=== PATIENT | female | born 1935 | race African-American/Black ===

== ENCOUNTER 2017-05-11 09:36 | Inpatient (IN) | payer OTHER ==
[~2017-05-11] VITALS: Ht 149.9 cm; Wt 53.5 kg
[~2017-05-11 09:36] MED LIST: BYSTOLIC 5MG5 MG PO; CYMBALTA 20 MG20 MG PO; EXELON PAT; METFORMIN HCL500 MG PO; ONGLYZA5 MG PO; SINGULAIR10 MG PO; ZOFRAN ODT8 MG PO
--- NOTE | 2017-05-11 10:24 | CT SCAN REPORT ---
EXAMINATION: CT HEAD WITHOUT CONTRAST CLINICAL INFORMATION: Aphasia. CVA. COMPARISON: Head CT 07/01/2013. TECHNIQUE: Contiguous axial imaging was performed from the skull base to vertex without intravenous administration of contrast. DLP: 1242 mGy-cm FINDINGS: There is no evidence of acute intracranial hemorrhage or territorial infarction. No abnormal mass effect or midline shift is seen. Recinos to white matter differentiation is preserved. No extra-axial fluid collections are identified. The ventricles and sulcal spaces are mildly prominent, likely representing a degree of cerebral volume loss. Diffuse periventricular and subcortical white matter hypoattenuation is redemonstrated, and likely represents sequela of ischemic microangiopathy. Basal ganglia calcification. The osseous structures and soft tissues are unremarkable. Mucosal thickening within right ethmoid air cells. Mastoid air cells are aerated. IMPRESSION: No acute intracranial pathology demonstrated. If clinically warranted, consider further evaluation with brain MRI to increase sensitivity for small lacunar infarct. Changes of chronic ischemic microangiopathy and suspect a degree of cerebral volume loss. Chronic parenchymal changes including sequela of moderate ischemic microangiopathy.
[2017-05-11 10:27] LABS: ABSOLUTE BASOPHIL COUNT 0 /CUMM (0.0-0.2); ABSOLUTE EOSINOPHIL COUNT 0 /CUMM (0.0-0.7); ABSOLUTE GRANULOCYTE CT 4.8 /CUMM (1.4-6.5); ABSOLUTE LYMPH COUNT 2.5 /CUMM (1.2-3.4); ABSOLUTE MONOCYTE COUNT 0.3 /CUMM (0.10-0.60); BASOPHIL % 0.6 % (0.0-2.0); EOSINOPHIL % 0.6 % (0-5); HEMATOCRIT 35.4 % (37-47); MEAN CORPUSCULAR HGB 29.7 PG (27.0-31.0); MEAN CORPUSCULAR HGB CONC 33.5 G/DL (33.0-37.0); MEAN CORPUSCULAR VOLUME 88.7 FL (81.0-99.0); MEAN PLATELET VOLUME 9.1 FL (7.4-10.4); PLATELET COUNT 251 /CUMM (130-400); RBC DISTRIBUTION WIDTH 14.5 % (11.5-14.5); RED BLOOD CELL CT 3.99 /CUMM (4.20-5.40); WHITE BLOOD CELL COUNT 7.7 /CUMM (4.8-10.8)
[2017-05-11 10:34] LABS: PT 11.2 SEC (9.4-12.5); PTT 30 SEC (25-37)
[2017-05-11 10:36] LABS: GRANULOCYTE % 62.3 % (42.2-75.2)
--- NOTE | 2017-05-11 10:39 | ED NEURO DEFICIT/STROKE ---
History of Present Illness General Chief Complaint: Neuro Symptoms/ Deficit Stated Complaint: BIBA NEURO DEFICITS Source: old records, EMS Exam Limitations: unable to give history, clinical condition Vital Signs & Intake/Output Vital Signs & Intake/Output Vital Signs Date Time Temp Pulse Resp B/P B/P Pulse O2 O2 Flow FiO2 Mean Ox Delivery Rate 05/11 1240 98.0 75 20 141/88 100 Room Air 05/11 1044 74 18 167/81 99 Room Air 05/11 1023 99 Room Air 05/11 0959 98.0 74 18 164/78 99 Room Air Allergies Coded Allergies: methotrexate (VOMITING 05/11/17) Reconcile Medications Duloxetine Hydrochloride (Cymbalta) 20 MG CAPSULE.DR 20 MG PO DAILY U ( Reported) Metformin Hydrochloride (Metformin HCl) 500 MG TAB 1,000 MG PO BID DIABETES ( Reported) Montelukast Sodium (Singulair) 10 MG TABLET 10 MG PO DAILY BREATHING PROBLEMS (Reported) Nebivolol (Bystolic) 5 MG TABLET 5 MG PO DAILY HEART HEALTH (Reported) Ondansetron (Zofran Odt) 8 MG ODT 1 TAB PO Q8 PRN nausea place on top of the tongue where it will dissolve, then swallow Rivastigmine (Exelon Patch) 4.6 MG/24 HR PAT ARTHRITIS (Reported) SAXAGLIPTIN HCL (Onglyza) 5 MG TABLET 5 MG PO DAILY DIABETES (Reported) Triage Note: PT BIBA FOR AMS, APHASIA AND L SIDED FACIAL DROOP, EMS STATING FAMILY TOLD THEM PT WAS SPEAKING NORMALLY AT 8 AM, ON ARRIVAL PT MAKING GRUNTING AND WHINING NOISES ATTEMPTING TO COMMUNICATE BUT NOT VERBAL, EMS STATING PT IS ONLY CREOLE SPEAKING AND THEY ARE UNSURE IF FAMILY IS COMING TO HOSPITAL. Triage Nurses Notes Reviewed? yes Onset: Just prior to arrival Duration: unknown duration Timing: recent history Severity: moderate Vision Problem? No Glaucoma? No Impaired Ability: unable to speak Baseline: alert but disoriented LMP (ages 10-50): post menopausal : No Patient currently breastfeeds: No HPI: Unknown time last seen well. Family member noted patient unable to speak and follow commands one hour prior to admission. The family member report no fever chills nausea vomiting diarrhea abdominal pain chest pain shortness breath headache dysuria rash bleeding. Past History Travel History Traveled to [place] past 21 day No Medical History Any Pertinent Medical History? see below for history Neurological: CVA, dementia Cardiovascular: hypertension History of MRSA: No History of VRE: No History of CDIFF: No Surgical History Surgical History: non-contributory Psychosocial History Who do you live with Patient/Self Services at Home Home Health Aide What is your primary language Albanian, Albanian Creole Tobacco Use: UN Family History Hx Contributory? No Review of Systems Review of Systems Constitutional: Reports: no symptoms. EENTM: Reports: no symptoms. Respiratory: Reports: no symptoms. Cardiovascular: Reports: no symptoms. GI: Reports: no symptoms. Genitourinary: Reports: no symptoms. Musculoskeletal: Reports: no symptoms. Skin: Reports: no symptoms. Neurological/Psychological: Reports: see HPI, other. Hematologic/Endocrine: Reports: no symptoms. Immunologic/Allergic: Reports: no symptoms. All Other Systems: Reviewed and Negative Physical Exam Physical Exam General Appearance: well developed/nourished, alert, awake, anxious, moderate distress, obese Head: atraumatic, normal appearance Eyes: Bilateral: normal appearance, PERRL, EOMI. Ears, Nose, Throat: normal ENT inspection, moist mucous membrane Neck: normal inspection, supple, full range of motion, trachea midline Respiratory: normal breath sounds, chest non-tender, no respiratory distress, quiet respiration, lungs clear Cardiovascular: regular rate/rhythm, normal peripheral pulses, norml femoral pulses equa Peripheral Pulses: 4+ carotid (R), 4+ carotid (L) Gastrointestinal: normal bowel sounds, soft, non-tender, no organomegaly Back: normal inspection, normal range of motion, no vertebral tenderness Extremities: normal range of motion, no ligament instability Psychiatric: awake, alert Cranial Nerves: aphasia Coordination/Gait: unable to test Motor/Sensory: positive Babinski's sign Reflexes: 2+: bicep (R), bicep (L). Skin: intact, normal color, warm/dry Core Measures CVA/TIA Diagnosis: Yes NIH Stroke Scale NIH Stroke Scale Response Value Level of Consciousness alert 0 LOC Questions incorrect 2 LOC Commands incorrect 2 Best Gaze normal 0 Visual Solano no visual loss 0 Facial Paresis minor 1 Motor Arm - Left untestable 0 Motor Arm - Right untestable 0 Motor Leg - Left untestable 0 Motor Leg - Right untestable 0 Limb Ataxia no ataxia 0 Sensory normal 0 Best Language mute 3 Dysarthria near to unintelligible 2 Extinction and Inattention no neglect 0 Total 10 Date Last Known Well: 05/10/17 Time Last Known Well: 1999 Symptom Start Date: 05/11/17 Symptom Start Time: 0800 Reason tPA not ordered Medical Contraindication Swallow Evaluation Fail (unable to follow command) Swallow eval date 05/11/17 Swallow eval time 1000 Sepsis Present: No Sepsis Focused Exam Completed? No Progress Differential Diagnosis: drug intoxication, electrolyte imbalance, hypoglycemia, intracranial mass/tumor, stroke Plan of Care: Orders Procedure Date/time Status LIPID PANEL 05/12 0600 Active CBC WITHOUT DIFFERENTIAL 05/12 0600 Active BASIC ELECTROLYTES PLUS BUN&CR 05/12 0600 Active Nothing by Mouth 05/11 D Active Pathway - chart 05/11 1244 Active Pathway - chart 05/11 1242 Active MRI-HEAD W/O EZRA 05/11 1237 Active Add-on Test (ER Only) 05/11 1223 Active Patient Data 05/11 1203 Active OXYGEN SETUP (GEN) 05/11 1121 Active Saline Lock 05/11 1121 Active Admit to inpatient 05/11 1121 Active Vital Signs 05/11 1121 Active Activity/Ambulation 05/11 1121 Active Code Status 05/11 1121 Active Intake & Output 05/11 1044 Active PARATHYROID HORMONE 05/11 1009 Complete FingerStick- Glucose 05/11 0956 Active TROPONIN LEVEL 05/11 0946 Complete PARTIAL THROMBOPLASTIN TIME 05/11 0946 Complete PROTHROMBIN TIME 05/11 0946 Complete MAGNESIUM 05/11 0946 Complete COMPREHENSIVE METABOLIC PANEL 05/11 0946 Complete CBC WITHOUT DIFFERENTIAL 05/11 0946 Complete EKG 05/11 0946 Active [id number] DOPPLER 05/11 UNK Active SWALLOW EVALUATION 05/11 UNK Active PT Evaluate & Treat 05/11 UNK Active House Staff 05/11 UNK Active Lab Add-on Test 05/11 UNK Active Occupational Tx Eval & Treat 05/11 UNK Active VTE Mechanical Prophylaxis 05/11 UNK Active Precautions 05/11 UNK Active NIH Stroke Scale 05/11 UNK Active ECHOCARDIOGRAM 05/11 UNK Active Current Medications Sig/Rimma Start time Last Medication Dose Stop Time Status Admin Atorvastatin Calcium 40 MG 1700 05/11 1300 AC (Lipitor) Laboratory Tests 05/11/17 1009: Anion Gap 13, Estimated GFR 53 L, BUN/Creatinine Ratio 15.0, Glucose 203 H, Calcium 10.8 H, Magnesium 1.9, Total Bilirubin 0.5, AST 32, ALT 36, Alkaline Phosphatase 75, Troponin I < 0.01, Total Protein 7.4, Albumin 4.1, Globulin 3.3, Albumin/Globulin Ratio 1.2, PTH Intact 85.5 H, PT 11.2, INR 1.07, APTT 30, CBC w Diff NO MAN DIFF REQ, RBC 3.99 L, MCV 88.7, MCH 29.7, MCHC 33.5, RDW 14.5, MPV 9.1, Gran % 62.3, Lymphocytes % 32.1, Monocytes % 4.4, Eosinophils % 0.6, Basophils % 0.6, Absolute Granulocytes 4.8, Absolute Lymphocytes 2.5, Absolute Monocytes 0.3, Absolute Eosinophils 0, Absolute Basophils 0 Diagnostic Imaging: Viewed by Me: CT Scan. Discussed w/RAD: CT Scan. Radiology Impression: No acute intracranial pathology demonstrated. If clinically warranted, consider further evaluation with brain MRI to increase sensitivity for small lacunar infarct. Changes of chronic ischemic microangiopathy and suspect a degree of cerebral volume loss. Chronic parenchymal changes including sequela of moderate ischemic microangiopathy. Initial ED EKG: normal axis, normal intervals, normal p-waves, normal QRS complex, normal sinus rhythm, no ST T wave changes Prior EKG: unchanged Rhythm Strip: normal sinus rhythm Comments: D/W with neurology Departure Departure Disposition: STILL A PATIENT Condition: Stable Clinical Impression Primary Impression: CVA (cerebral vascular accident) Secondary Impressions: Aphasia Referrals: Ramón Rocha MD (PCP/Family) Departure Forms: Customer Survey General Discharge Information Admission Note Spoke With: Margret Samson MD Documentation of Exam: Documentation of any treatments & extenuating circumstances including Concerns Regarding Discharge (functional status, medication knowledge or non-compliance, living conditions, etc.) that warrant an admission rather than observation: Cardiac monitoring serial lab serial neurologic vital exam neurology evaluation swallow study physical therapy continuing care discharge planning Critical Care Note Critical Care Note Critical Care Time: 30-74 min (40)
--- NOTE | 2017-05-11 12:52 | History & Physical ---
See Addendum General Information and HPI MD Statement: I have seen and personally examined AMINA MCCLENDON and documented this H&P. The patient is a 81 year old F who presented with a patient stated chief complaint of [fascial droopind and difficulty speech]. Source of Information: patient, family, EMS, [facility] Exam Limitations: no limitations History of Present Illness: Mrs. Mcclendon is a 76-year-old lady with a past medical history of diabetes, hypertension, dementia, TIA and rheumatoid arthritis who brought in to ED by EMS after she was noted to have left side fascial drooping and difficulty speaking. stroke 5 years, with no residual weakness. I wasn't able to obtain any history from the patient secondry to the aphasia and I'm not sure if she speak amharic. I was able to reach son in law who report that today at am they found the patient at her bedroom with her head back on the chair and she couldn't move, she didn't talk to them, she was just staring to the roof, when they tried to dress her she start screaming as if her body is hurting or she may have cramps. Per son in law, he mentioned that the patient had stroke about 5 years ago, she has no residual deficit, she was able to ambulate without a walker or a cane. However, lately she has B/L LE pain secondary to arthritis so they apply for medicare for a walker. Son in law has limited information and he asked us to contact her daughter Sonya at 4:30 PM. Allergies/Medications Allergies: Coded Allergies: methotrexate (VOMITING 05/11/17) Home Med list Duloxetine Hydrochloride (Cymbalta) 20 MG CAPSULE.DR 20 MG PO DAILY U ( Reported) Metformin Hydrochloride (Metformin HCl) 500 MG TAB 1,000 MG PO BID DIABETES ( Reported) Montelukast Sodium (Singulair) 10 MG TABLET 10 MG PO DAILY BREATHING PROBLEMS (Reported) Nebivolol (Bystolic) 5 MG TABLET 5 MG PO DAILY HEART HEALTH (Reported) Ondansetron (Zofran Odt) 8 MG ODT 1 TAB PO Q8 PRN nausea place on top of the tongue where it will dissolve, then swallow Rivastigmine (Exelon Patch) 4.6 MG/24 HR PAT ARTHRITIS (Reported) SAXAGLIPTIN HCL (Onglyza) 5 MG TABLET 5 MG PO DAILY DIABETES (Reported) Past History Travel History Traveled to [place] past 21 day No Medical History Neurological: CVA, TIA Cardiovascular: hypertension Musculoskeletal: rheumatoid arthritis Endocrine: diabetes History of MRSA: No History of VRE: No History of CDIFF: No Surgical History Surgical History: non-contributory Past Family/Social History Psychosocial History Services at Home: Home Health Aide Functional Ability Ambulation: independent Review of Systems Review of Systems Constitutional: Reports: no symptoms. Musculoskeletal: Reports: joint pain. Exam & Diagnostic Data Last 24 Hrs of Vital Signs/I&O Vital Signs Date Time Temp Pulse Resp B/P B/P Pulse O2 O2 Flow FiO2 Mean Ox Delivery Rate 05/11 1240 98.0 75 20 141/88 100 Room Air 05/11 1044 74 18 167/81 99 Room Air 05/11 1023 99 Room Air 05/11 0959 98.0 74 18 164/78 99 Room Air Intake & Output 05/11 1600 05/11 0800 05/11 0000 Intake Total 0 Output Total Balance 0 Intake, Oral 0 Patient 129 lb Weight Weight Reported by Patient Measurement Method Physical Exam General Appearance Alert, No Acute Distress Cardiovascular Regular Rate, Normal S1, Normal S2 Lungs Clear to Auscultation, Normal Air Movement Extremities No Clubbing, No Cyanosis, No Edema, Normal Pulses Vascular Normal Pulses, Pulses Symmetrical Last 24 Hrs of Labs/Christopher: Laboratory Tests 05/11/17 1009: Anion Gap 13, Estimated GFR 53 L, BUN/Creatinine Ratio 15.0, Glucose 203 H, Calcium 10.8 H, Magnesium 1.9, Total Bilirubin 0.5, AST 32, ALT 36, Alkaline Phosphatase 75, Troponin I < 0.01, Total Protein 7.4, Albumin 4.1, Globulin 3.3, Albumin/Globulin Ratio 1.2, PTH Intact 85.5 H, PT 11.2, INR 1.07, APTT 30, CBC w Diff NO MAN DIFF REQ, RBC 3.99 L, MCV 88.7, MCH 29.7, MCHC 33.5, RDW 14.5, MPV 9.1, Gran % 62.3, Lymphocytes % 32.1, Monocytes % 4.4, Eosinophils % 0.6, Basophils % 0.6, Absolute Granulocytes 4.8, Absolute Lymphocytes 2.5, Absolute Monocytes 0.3, Absolute Eosinophils 0, Absolute Basophils 0 Diagnostic Data EKG Results SR, NORMAL AXIS, QTC 453, NO ACUTE CHANGES Other Results CT-HEAD: No intracranial pathology Chronic ischemic microangiopathy, degree of cerebral volume loss Assessment/Plan Assessment: Mrs. Mcclendon is a 76-year-old lady with a past medical history of diabetes, hypertension, dementia, TIA and rheumatoid arthritis who brought in to ED by EMS after she was noted to have left side fascial drooping and difficulty speaking. admitted for CVA/TIA Vitals, examination, labs and imaging as above Assessment: #Aphasia/ left fascial droop #Hypercalcemia with elevated Intact PTH #Hx. of HTN #Hx. of DM #Hx. of RA Plan: -Will admit the patient to telemetry floor -She received high dose ASA, will continue with ASA 81mg daily from tomorrow -Lipitor 40mg daily -We don't have an MRI today, it's going to be done tomorrow -B/L carotid US -Echocardiogram -Neurochecks/ NIHA scale -Neurology consult -Will gently hydrate with D4 half normal saline to maintain euvolemia and given Hx of diabetes -Allow the permissive BP, no treatment unless BP> 220/120 or the mean is > 140mmgh. -Official swallow eval -Echocardiogram -Cardiology consult -Accucheck with insulin sliding scale -She passed bedside swallow evaluation, but will place another official swallow evaluation. -NPO with ability to administer PO meds -PT/OT DVT ppx ALPS till the result of MRI came, will start pharmacological DVT ppx within 48 hours if no contraindications. Full code As Ranked By This Provider Problem List: 1. CVA (cerebral vascular accident) 2. Aphasia 3. Diabetes mellitus Core Measures/Misc (11/29) Acute Coronary Syndrome ACS Diagnosis: No Congestive Heart Failure Congestive Heart Failure Diagnosis No Cerebrovascular Accident CVA/TIA Diagnosis: Yes VTE (View Protocol) VTE Risk Factors Acute Medical Illness No Mechanical VTE Prophylaxis d/t N/A MechProphylax Ordered No VTE Pharm Prophylaxis d/t Other Sepsis (View protocol) Sepsis Present: No
[2017-05-11 15:07] VITALS: BP 110/80
--- NOTE | 2017-05-11 15:19 | ULTRASOUND REPORT ---
EXAMINATION: US DUPLEX CAROTID AND VERTEBRAL CLINICAL INFORMATION: TIA COMPARISON: None TECHNIQUE: Real-time ultrasound and Doppler techniques (integrating B-mode 2D vascular images, Doppler spectral analysis and color flow Doppler imaging) were utilized to interrogate the extracranial carotid and vertebral arteries bilaterally. The degree of stenosis determined by criteria similar to NASCET. FINDINGS: On the right: Unable to examine the right neck as the patient was lying on her right side and would not turn to allow examination of the right carotid system. On the left: No plaque is seen at the carotid bifurcation or within the internal carotid artery. All velocities were within normal limits. The vertebral artery demonstrates antegrade flow. The external carotid artery appeared normal. The left external carotid artery was unremarkable. IMPRESSION: 1. The right carotid system was unable to be examined due to the patient's inability to cooperate with the exam. 2. No evidence of a hemodynamically significant stenosis involving the left internal carotid artery.
[2017-05-11] MEDS ORDERED: AMARYL1 M1 PO (16:54)
[2017-05-11] MEDS ORDERED: ASPIRIN81 M4 PO (16:54)
[2017-05-11] MEDS ORDERED: VITAMIN D1000 UNIT PO (16:55)
[2017-05-11] MEDS ORDERED: GLUCOPHAGE850 M2 PO (16:55)
[2017-05-11] MEDS ORDERED: VITAMIN B-121000 MC3 PO (16:55)
--- NOTE | 2017-05-11 17:15 | Admission Certification ---
Admission Certification Certification Statement - As attending physician, I certify that at the time of - admission, based on clinical presentation, severity of - symptoms, need for further diagnostic testing and - therapeutic interventions, and risk of adverse outcomes - without in-hospital treatment, in my clinical assessment, - this patient requires an acute hospital stay for a minimum - of two nights or longer. I have also considered psychsocial - factors such as support system, advanced age, financial - issues, cognitive issues, and failed out-patient treatments, - past re-admission history, safety of patient, and lack of - compliance as applicable. Specific rationale supporting this admission is: Admit inpatient medical service for management of Stroke.
[2017-05-11 23:34] VITALS: BP 158/78
[2017-05-12 07:14] VITALS: BP 142/72
--- NOTE | 2017-05-12 07:20 | PN- Housestaff ---
Martin SHINE,Dang 05/12/17 0719: Subjective Follow-up For: TIA/stroke Subjective: Seen and examined Appears stable and able to talk. Daughter at bedside. Spoke in detail about patient. Patient is a 81 YO F demented with 24hrs assistance at home, lives with daughter. At baseline she couldnt even express her pain. Yesterday she suddenly became confused, making unusual movements with her mouth. She was unable to talk and shaking without any urine/bowel incontinence. Her brought her to ER. Review of Systems Constitutional: Reports: see HPI. Objective Last 24 Hrs of Vital Signs/I&O Vital Signs Date Time Temp Pulse Resp B/P B/P Pulse O2 O2 Flow FiO2 Mean Ox Delivery Rate 05/12 0714 98.0 68 20 142/72 98 Room Air 05/11 2334 98.6 73 16 158/78 96 Room Air 05/11 1507 96.4 75 18 110/80 97 05/11 1240 98.0 75 20 141/88 100 Room Air 05/11 1044 74 18 167/81 99 Room Air 05/11 1023 99 Room Air 05/11 0959 98.0 74 18 164/78 99 Room Air Intake & Output 05/12 0800 05/12 0000 05/11 1600 Intake Total 225 0 Output Total Balance 225 0 Intake, IV 225 Intake, Oral 0 Patient 53.977 kg 58.513 kg Weight Weight Reported by Patient Measurement Method Physical Exam General Appearance: Alert, Oriented X3, Cooperative Skin: No Rashes, No Breakdown HEENT: Atraumatic, PERRLA Neck: Supple Cardiovascular: Normal S1, Normal S2 Lungs: Clear to Auscultation, Normal Air Movement Abdomen: Normal Bowel Sounds, Soft, No Tenderness Neurological: Normal Speech, Strength at 5/5 X4 Ext, Normal Tone, Sensation Intact Extremities: No Clubbing, No Cyanosis Current Medications: Current Medications Sig/Rimma Start time Last Medication Dose Route Stop Time Status Admin Aspirin 300 MG DAILY 05/12 1000 CAN [place] Aspirin 81 MG DAILY 05/12 1000 AC PO Aspirin 300 MG ONCE ONE 05/11 1300 DC 05/11 NJ 05/11 1301 1254 Atorvastatin Calcium 40 MG 1700 05/11 1300 AC 05/11 PO 1731 Clopidogrel Bisulfate 75 MG DAILY 05/11 1745 AC PO Dextrose/Sodium 1,000 ML Q13H 05/11 1415 AC 05/12 Chloride IV 0605 Insulin Aspart 0 TIDAC 05/11 1700 CAN SC Insulin Human Regular 2 UNITS .STK-MED ONE 05/12 0037 DC IV 05/12 0038 Insulin Human Regular 0 Q6 05/11 1800 AC 05/12 SC 0605 Last 24 Hrs of Lab/Christopher Results Last 24 Hrs of Labs/Mics: Laboratory Tests 05/12/17 0705: Anion Gap 11, Estimated GFR > 60, BUN/Creatinine Ratio 13.3, Triglycerides 109, Cholesterol 163, LDL Cholesterol, Calc 103, HDL Cholesterol 39 L, Cholesterol/ HDL Ratio 4, CBC w Diff Pending, WBC Pending, RBC Pending, Hgb Pending, Hct Pending, MCV Pending, MCH Pending, MCHC Pending, RDW Pending, Plt Count Pending, MPV Pending 05/11/17 1638: Troponin I < 0.01 05/11/17 1009: Anion Gap 13, Estimated GFR 53 L, BUN/Creatinine Ratio 15.0, Glucose 203 H, Calcium 10.8 H, Magnesium 1.9, Total Bilirubin 0.5, AST 32, ALT 36, Alkaline Phosphatase 75, Troponin I < 0.01, Total Protein 7.4, Albumin 4.1, Globulin 3.3, Albumin/Globulin Ratio 1.2, PTH Intact 85.5 H, PT 11.2, INR 1.07, APTT 30, CBC w Diff NO MAN DIFF REQ, RBC 3.99 L, MCV 88.7, MCH 29.7, MCHC 33.5, RDW 14.5, MPV 9.1, Gran % 62.3, Lymphocytes % 32.1, Monocytes % 4.4, Eosinophils % 0.6, Basophils % 0.6, Absolute Granulocytes 4.8, Absolute Lymphocytes 2.5, Absolute Monocytes 0.3, Absolute Eosinophils 0, Absolute Basophils 0 Assessment/Plan Assessment: Patient is a haician creole (cambodian related ?errol) speaking female with HTN, DM on oral hypoglycemics, TIA, RA presented with seizure like symptoms yesterday. CT head is unremarkable. Admitted to telemetry floor. Plan Possible Seizure At this point we will proceed with seizure work up including EEg and empirically start her on Keppra 500mg BID. ECHO is unremarkable. Neuro was consulted. continue ASA and Atorvastatin. Discontinue Plavix as stroke is less likely cause of her symptoms. DM Insulin sliding scale with D51/2NS. On oral hypoglycemics at home which were on hold. History of RA and TIA we will continue aspirin and statin DVT prophylaxis ALPS Code status full code Problem List: 1. CVA 2. Diabetes mellitus 3. TIA 4. Aphasia Pain Ratin Pain Location: n/a Pain Goal: Pain 4 or less Pain Plan: tylenol as needed Tomorrow's Labs & Rationales: none Marvin Fair MDemaniameena 05/12/17 1208: Attending MD Review Statement Attending Statement Attending MD Statement: examined this patient, discuss w/resident/PA/DRY END OPERATOR, agreed w/resident/PA/DRY END OPERATOR, discussed with family, reviewed EMR data (avail), discussed with nursing, discussed with case mgmt, amended to note Attending Assessment/Plan: More information was obtained from the patient's daughter was present at the bedside today. According to the daughter patient has advanced dementia for the past 8 years. At baseline patient is on assist of 1 to ambulate she is unable to coordinate the use of walker. Also at baseline patient is primarily nonverbal. She will on occasion engage in conversation and daughter reports that on occasion she is actually talkative but for the most part she does not engage in conversation. Daughter reports that patient's current state is at baseline. Additionally daughter reported that the home health aide sought help yesterday after that the patient slumped her head backwards and started having quivering of her lips and fingers. The symptoms sound more consistent with a seizure done stroke. Patient has not had similar episodes in the past. She has certainly not had any such episodes while here in the hospital. On examination today patient will occasionally respond to questioning. She is alert and aware of her surroundings. I did evaluate her with the neurologist. She was able to move all extremities spontaneously and occasionally to command. She was able to recognize appropriately some objects or shortness of also read appropriately some words. Assessment. 1. Patient's symptoms are not consistent with a stroke particularly in light of the negative CT scan. History provided by daughter appears more consistent with a seizure episode. 2. Advanced dementia. Patient was taken off Exelon patch about a year ago due to lack of any significant improvement. Recommendations: -No need to pursue MRI. Discontinue Plavix. -Obtain EEG to evaluate for seizure. -Neurology service is recommending beginning patient empirically on antiepileptic therapy with Keppra. -Physical therapy evaluation to ensure that patient is at baseline. -We will monitor patient overnight to ensure she does not have any seizure episodes overnight after which she may be discharged home tomorrow if she remains in stable condition.
--- NOTE | 2017-05-12 07:40 | ECHOCARDIOGRAM REPORT ---
AMINA GUERRIER Age: 81 : 1935 Gender: F Exam Date: 05/11/2017 15:40 Exam Location: 1 [address] Ht (in): 64 Wt (lb): 129 BSA: 1.63 BP: 141 / 88 Ordering Physician: Keenan Sifuentes MD Referring Physician: Nabil Tuttle MD Technologist: Sruthi Guzman [facility] Room Number: [id number] Indications: TIA Rhythm: Sinus Technical Quality: fair FINDINGS Left Ventricle Normal global left ventricular size, wall thickness, systolic function with no obvious regional wall motion abnormalities. Normal left ventricular ejection fraction estimated at 60-65%. Right Ventricle Normal right ventricular size and function. Right Atrium Normal right atrial size. Left Atrium Normal left atrial size. Mitral Valve Mild mitral annular calcification. Mild mitral regurgitation. Aortic Valve Diffuse thickening (sclerosis) of the aortic valve cusps without reduced excursion. Ovio-rx-mglyniyu aortic regurgitation. Tricuspid Valve Tricuspid valve is normal in structure and function. Mild tricuspid regurgitation. Right ventricular systolic pressure estimated to be within the normal range at 26 mmHg. Pulmonic Valve Pulmonic valve not well visualized, grossly normal. Pericardium No pericardial effusion. Great Vessels Normal size aortic root. CONCLUSIONS Normal left and right ventricular systolic function. Aortic Sclerosis. Mild to moderate Aortic Regurgitation. Nabil Tuttle M.D. (Electronically Signed) Final Date: 12 May 2017 07:40 MEASUREMENTS (Male / Female) Normal Values 2D ECHO LV Diastolic Diameter PLAX 4.2 cm 4.2 - 5.9 / 3.9 - 5.3 cm LV Systolic Diameter PLAX 2.5 cm 2.1 - 4.0 cm LV Fractional Shortening PLAX 40.5 % 25 - 46 % LV Ejection Fraction 2D Teich 71.6 % IVS Diastolic Thickness 1.0 cm LVPW Diastolic Thickness 1.0 cm LV Relative Wall Thickness 0.5 LVOT Diameter 1.8 cm Aortic Root Diameter 3.0 cm LA Systolic Diameter LX 2.8 cm 3.0 - 4.0 / 2.7 - 3.8 cm LA Volume 21.0 cm 18 - 58 / 22 - 52 cm Ascending Aorta Diameter 3.2 cm DOPPLER AV Peak Velocity 153.0 cm/s AV Peak Gradient 9.4 mmHg AV Mean Velocity 104.0 cm/s AV Mean Gradient 5.0 mmHg AV Velocity Time Integral 32.4 cm AI Deceleration [place] 197.0 cm/s AI Peak Velocity 438.0 cm/s AI Pressure Half Time 651.0 ms AI Peak Gradient 76.7 mmHg LVOT Peak Velocity 127.0 cm/s LVOT Peak Gradient 6.5 mmHg LVOT Mean Velocity 82.6 cm/s LVOT Mean Gradient 3.0 mmHg LVOT Velocity Time Integral 29.6 cm LVOT Stroke Volume 75.3 cm AV Area Cont Eq vti 2.3 cm AV Area Cont Eq pk 2.1 cm MV Peak Velocity 102.0 cm/s MV Peak Gradient 4.2 mmHg MV Mean Velocity 49.6 cm/s MV Mean Gradient 1.0 mmHg Mitral E Point Velocity 74.0 cm/s Mitral A Point Velocity 103.0 cm/s Mitral E to A Ratio 0.7 MV PHT Velocity 84.3 cm/s MV Deceleration [place] 446.0 cm/s MV Pressure Half Time 56.7 ms MV Area PHT 3.9 cm MV Deceleration Time 203.0 ms TR Peak Velocity 233.0 cm/s TR Peak Gradient 21.7 mmHg Right Atrial Pressure 5.0 mmHg Pulmonary Artery Systolic Pressu 26.7 mmHg Right Ventricular Systolic Press 26.7 mmHg PV Peak Velocity 95.1 cm/s PV Peak Gradient 3.6 mmHg PV Mean Velocity 59.9 cm/s PV Mean Gradient 2.0 mmHg PV Velocity Time Integral 19.6 cm LV E' Lateral Velocity 7.2 cm/s Mitral E to LV E' Lateral Ratio 10.3 LV E' Septal Velocity 5.2 cm/s Mitral E to LV E' Septal Ratio 14.3
[2017-05-12 08:23] LABS: ABSOLUTE BASOPHIL COUNT 0 /CUMM (0.0-0.2); ABSOLUTE EOSINOPHIL COUNT 0.1 /CUMM (0.0-0.7); ABSOLUTE GRANULOCYTE CT 2.7 /CUMM (1.4-6.5); ABSOLUTE LYMPH COUNT 1.9 /CUMM (1.2-3.4); ABSOLUTE MONOCYTE COUNT 0.4 /CUMM (0.10-0.60); BASOPHIL % 0.5 % (0.0-2.0); EOSINOPHIL % 1.3 % (0-5); GRANULOCYTE % 53.5 % (42.2-75.2); MEAN CORPUSCULAR HGB 30.1 PG (27.0-31.0); MEAN CORPUSCULAR VOLUME 88.7 FL (81.0-99.0); MEAN PLATELET VOLUME 9.5 FL (7.4-10.4); PLATELET COUNT 204 /CUMM (130-400); RBC DISTRIBUTION WIDTH 14.4 % (11.5-14.5); RED BLOOD CELL CT 3.49 /CUMM (4.20-5.40); WHITE BLOOD CELL COUNT 5.1 /CUMM (4.8-10.8)
--- NOTE | 2017-05-12 09:26 | Cons- Neurology ---
General Information and HPI Consulting Request Date of Consult: 05/12/17 Requested By: Manjula SHINE,Shirley Reason for Consult: ionall Source of Information: family, ENR, MD Exam Limitations: unable to give history History of Present Illness: 81-year-old woman with an 8-10 year history of dementia, on Exelon in the past but subsequently discontinued due to ineffectiveness per her daughter. At baseline, presumably related to her dementia, she is minimally verbal. Yesterday her home health aide reported finding her with her head extended backward and toward the right, arms shaking, verbally unresponsive. It is unknown whether there was incontinence. There is no clinical evidence of tongue biting. There is no prior history of symptoms of this nature. Today, according to her daughter, she appears to be at her baseline. There is no known history of seizures or TIAs no history of strokes. Allergies/Medications Allergies: Coded Allergies: methotrexate (VOMITING 05/11/17) Home Med List: Aspirin (Aspirin*) 81 MG TAB.CHEW 1 TAB PO DAILY HEART HEALTH (Reported) Cholecalciferol (Vitamin D3) (Vitamin D) 1,000 UNIT TABLET 1 TAB PO DAILY SUPPLEMENT (Reported) Cyanocobalamin (Vitamin B-12) 1,000 MCG TABLET 1 TAB PO DAILY SUPPLEMENT ( Reported) Duloxetine Hydrochloride (Cymbalta) 20 MG CAPSULE.DR 20 MG PO DAILY U ( Reported) Glimepiride (Amaryl) 1 MG TABLET 1 TAB PO DAILY DM (Reported) Metformin HCl (Glucophage) 850 MG TABLET 1 TAB PO BID DM (Reported) Ondansetron (Zofran Odt) 8 MG ODT 1 TAB PO Q8 PRN nausea place on top of the tongue where it will dissolve, then swallow Current Medications: Current Medications Sig/Rimma Start time Last Medication Dose Route Stop Time Status Admin Aspirin 300 MG DAILY 05/12 1000 CAN [place] Aspirin 81 MG DAILY 05/12 1000 AC PO Aspirin 300 MG ONCE ONE 05/11 1300 DC 05/11 [place] 05/11 1301 1254 Atorvastatin Calcium 40 MG 1700 05/11 1300 AC 05/11 PO 1731 Clopidogrel Bisulfate 75 MG DAILY 05/11 1745 AC PO Dextrose/Sodium 1,000 ML Q13H 05/11 1415 AC 05/12 Chloride IV 0605 Insulin Aspart 0 TIDAC 05/11 1700 CAN SC Insulin Human Regular 2 UNITS .STK-MED ONE 05/12 0037 DC IV 05/12 0038 Insulin Human Regular 0 Q6 05/11 1800 AC 05/12 [place] 0605 Review of Systems Review of Systems: Unobtainable from the patient. At baseline she walks with hand-held assist of her aids. Her appetite is good. According to her daughter she speaks Creole and also Bots[place]an, as she spent some time living in the [place]. Past History Travel History Traveled to [place] past 21 day No Medical History Neurological: CVA, dementia Cardiovascular: hypertension Musculoskeletal: rheumatoid arthritis Endocrine: diabetes Surgical History Surgical History: non-contributory Psychosocial History Services at Home: Home Health Aide Smoking Status: Never Smoked Functional Ability Ambulation: independent Exam & Diagnostic Data Vital Signs and I&O Vital Signs Date Time Temp Pulse Resp B/P B/P Pulse O2 O2 Flow FiO2 Mean Ox Delivery Rate 05/12 0714 98.0 68 20 142/72 98 Room Air 05/11 2334 98.6 73 16 158/78 96 Room Air 05/11 1507 96.4 75 18 110/80 97 05/11 1240 98.0 75 20 141/88 100 Room Air 05/11 1044 74 18 167/81 99 Room Air 05/11 1023 99 Room Air 05/11 0959 98.0 74 18 164/78 99 Room Air Intake & Output 05/12 1600 05/12 0800 05/12 0000 Intake Total 600 225 Output Total Balance 600 225 Intake, IV 600 225 Intake, Oral 0 Patient 119 lb Weight Physical Exam: Gen.: Awake, alert, cooperative, in no apparent distress Head normocephalic H manic Neck supple No audible carotid or cranial bruits Heart regular rate and rhythm Abdomen soft Extremities no clubbing cyanosis or edema. Arthritic changes. Intact peripheral pulses Neurologic exam: She was awake and alert. She was a abulic. She occasionally provided 1 word responses. She indicated that she was hungry by saying in Chinese "manger." She was able to follow basic commands both in Chinese and in Botswanan greater than in Pakistani Cranial nerves no gross visual field loss Fundi poorly visualized Pupils equal and reactive to light Extraocular movements full Grossly intact facial sensation Intact muscles of mastication facial expression Symmetric elevation of the uvula and palate. Symmetric shoulder shrug. Midline tongue protrusion Grossly intact hearing Motor: Normal muscle bulk, tone, strength; no abnormal involuntary movements No ataxia on finger-nose or [id number] testing No gross sensory loss Tendon reflexes symmetrically trace to absent Plantar responses flexor Gait not tested Last 48 Hours of Lab Results: Laboratory Tests 05/12 05/11 05/11 0705 1638 1009 Chemistry Sodium (137 - 145 mmol/L) 139 140 Potassium (3.5 - 5.1 mmol/L) 4.3 5.0 Chloride (98 - 107 mmol/L) 104 105 Carbon Dioxide (22 - 30 mmol/L) 24 23 Anion Gap (5 - 16) 11 13 BUN (7 - 17 mg/dL) 12 15 Creatinine (0.5 - 1.0 mg/dL) 0.9 1.0 Estimated GFR (>60 ml/min) > 60 53 L BUN/Creatinine Ratio (7 - 25 %) 13.3 15.0 Glucose (65 - 99 mg/dL) 203 H Calcium (8.4 - 10.2 mg/dL) 10.8 H Magnesium (1.6 - 2.3 mg/dL) 1.9 Total Bilirubin (0.2 - 1.3 mg/dL) 0.5 AST (14 - 36 U/L) 32 ALT (9 - 52 U/L) 36 Alkaline Phosphatase (<127 U/L) 75 Troponin I (< 0.11 ng/ml) < 0.01 < 0.01 Total Protein (6.3 - 8.2 g/dL) 7.4 Albumin (3.5 - 5.0 g/dL) 4.1 Globulin (1.9 - 4.2 gm/dL) 3.3 Albumin/Globulin Ratio (1.1 - 2.2 %) 1.2 Triglycerides (<150 mg/dL) 109 Cholesterol (<200 MG/DL) 163 LDL Cholesterol, Calc (65 - 129 mg/dL) 103 HDL Cholesterol (40 - 60 mg/dL) 39 L Cholesterol/HDL Ratio (0.00 - 4.23 %) 4 PTH Intact (18.4 - 80.1 pg/ML) 85.5 H Coagulation PT (9.4 - 12.5 SEC) 11.2 INR (0.90 - 1.19) 1.07 APTT (25 - 37 SEC) 30 Hematology CBC w Diff Pending NO MAN DIFF REQ WBC (4.8 - 10.8 /CUMM) Pending 7.7 RBC (4.20 - 5.40 /CUMM) Pending 3.99 L Hgb (12.0 - 16.0 G/DL) Pending 11.9 L Hct (37 - 47 %) Pending 35.4 L MCV (81.0 - 99.0 FL) Pending 88.7 MCH (27.0 - 31.0 PG) Pending 29.7 MCHC (33.0 - 37.0 G/DL) Pending 33.5 RDW (11.5 - 14.5 %) Pending 14.5 Plt Count (130 - 400 /CUMM) Pending 251 MPV (7.4 - 10.4 FL) Pending 9.1 Gran % (42.2 - 75.2 %) 62.3 Lymphocytes % (20.5 - 51.1 %) 32.1 Monocytes % (1.7 - 9.3 %) 4.4 Eosinophils % (0 - 5 %) 0.6 Basophils % (0.0 - 2.0 %) 0.6 Absolute Granulocytes (1.4 - 6.5 /CUMM) 4.8 Absolute Lymphocytes (1.2 - 3.4 /CUMM) 2.5 Absolute Monocytes (0.10 - 0.60 /CUMM) 0.3 Absolute Eosinophils (0.0 - 0.7 /CUMM) 0 Absolute Basophils (0.0 - 0.2 /CUMM) 0 Imaging/Other Studies: EXAMINATION: CT HEAD WITHOUT CONTRAST CLINICAL INFORMATION: Aphasia. CVA. COMPARISON: Head CT 07/01/2013. TECHNIQUE: Contiguous axial imaging was performed from the skull base to vertex without intravenous administration of contrast. DLP: 1242 mGy-cm FINDINGS: There is no evidence of acute intracranial hemorrhage or territorial infarction. No abnormal mass effect or midline shift is seen. Recinos to white matter differentiation is preserved. No extra-axial fluid collections are identified. The ventricles and sulcal spaces are mildly prominent, likely representing a degree of cerebral volume loss. Diffuse periventricular and subcortical white matter hypoattenuation is redemonstrated, and likely represents sequela of ischemic microangiopathy. Basal ganglia calcification. The osseous structures and soft tissues are unremarkable. Mucosal thickening within right ethmoid air cells. Mastoid air cells are aerated. IMPRESSION: No acute intracranial pathology demonstrated. If clinically warranted, consider further evaluation with brain MRI to increase sensitivity for small lacunar infarct. Changes of chronic ischemic microangiopathy and suspect a degree of cerebral volume loss. Chronic parenchymal changes including sequela of moderate ischemic microangiopathy. DICTATED BY: Chuy Hess MD DATE/TIME DICTATED:05/11/171012 LEGAL ACTIVITY ADJUDICATOR:JUAN DIEGO DATE/TIME TRANSCRIBED:05/11/171012 ECHO CONCLUSIONS Normal left and right ventricular systolic function. Aortic Sclerosis. Mild to moderate Aortic Regurgitation. Nabil Tuttle M.D. (Electronically Signed) Final Date: 12 May 2017 FINDINGS: On the right: Unable to examine the right neck as the patient was lying on her right side and would not turn to allow examination of the right carotid system. On the left: No plaque is seen at the carotid bifurcation or within the internal carotid artery. All velocities were within normal limits. The vertebral artery demonstrates antegrade flow. The external carotid artery appeared normal. The left external carotid artery was unremarkable. IMPRESSION: 1. The right carotid system was unable to be examined due to the patient's inability to cooperate with the exam. 2. No evidence of a hemodynamically significant stenosis involving the left internal carotid artery. DICTATED BY: Saida Orosco MD DATE/TIME DICTATED:05/11/171511 Assessment/Plan Assessment: Dementia with a aphasia Possible new onset seizure Doubt TIA On daily aspirin prior to admission Recommendations: Keppra 500 mg twice a day EEG Follow-up in the epilepsy clinic at [place] Continue aspirin Discontinue Plavix Consult Acknowledgment - Thank you for your consult request.
[2017-05-12 14:00] VITALS: BP 120/60
--- NOTE | 2017-05-12 16:23 | Discharge Summary ---
Visit Information Visit Dates Admission Date: 05/11/17 Discharge Date: 05/13/17 Hospital Course Course Attending Physician: Shirley Fair MD Primary Care Physician: Ramón Rocha MD Consulting Request: Consulting Specialty: Neurology Consulting Physician: Reason for Consult: sudden neuro changes Hospital Course: Patient is a haician creole (errol) speaking female with HTN, DM on oral hypoglycemics, TIA, RA presented with seizure like symptoms. Most of the history was obtained from the daughter. Admitted to telemetry floor. Intial work up for possible stroke was negative. Problem list New onset seizure DM Dementia HTN TIA RA New onset seizure Patient presented with sudden onset of aphasia and lip smacking movements associated with shaking. It is more consistent with seizure like activity than stroke. intial work up for stroke including CT head, ECHO and carotid ultrasound was normal. Underwent EEG which demonstrated moderate generalized slowing recommending antiepleptics if clinical suspicion is high. she was started on keppra 500mg BID due to high clinical suspicion. PT suggested STR, however given her dementia with established 24hr care at home it is thought safer to send home than for a rehab. she is discharged with ambulance. Recommended to follow up with [facility] epilepsy center. Advanced dementia she did have very advanced dementia with little improvement with medications. So discontinued exelon and remained off medicaitions. Diabetes During hospital stay provided with ISS with accuchecks. At home on metfromin and glimiperide - we will continue at discharge. HTN Patient was on Bystolic 5mg dialy previously. She was off this medication for around a month. Her BP during this hospitalization is within normal limits. So we will discontinue Bystolic for now. Strongly recommend outpatient follow up of her Blood pressure. TIA (long back) continue ASA 81mg daily DVT prophylaxis ALPS Code status full code Complications: None Allergies: Coded Allergies: methotrexate (VOMITING 05/11/17) Significant Procedures: Carotid doppler 05/11/17 IMPRESSION: 1. The right carotid system was unable to be examined due to the patient's inability to cooperate with the exam. 2. No evidence of a hemodynamically significant stenosis involving the left internal carotid artery. ECHO on 05/12/17 CONCLUSIONS Normal left and right ventricular systolic function EF 60-65%. Aortic Sclerosis. Mild to moderate Aortic Regurgitation. Nabil Tuttle M.D. Head CT 05/11/17 IMPRESSION: No acute intracranial pathology demonstrated. If clinically warranted, consider further evaluation with brain MRI to increase sensitivity for small lacunar infarct. Changes of chronic ischemic microangiopathy and suspect a degree of cerebral volume loss. Chronic parenchymal changes including sequela of moderate ischemic microangiopathy. EEG 05/13/17 Interpretation: A limited 13-lead 10 channel recording was performed on this confused and uncooperative patient. The study is limited by movement and muscle artifact recurring throughout the recording Activation procedures such as photic and hyperventilation could not be performed. During moments of relative calm the background is composed of somewhat irregular moderate amplitude 6-7 Hz rhythms with rare 9 Hz activity in the posterior region which is bilaterally symmetric. most of the record consists of higher amplitude slower theta and 2-3 Hz delta frequency activity with muscle and movement artifact. There is a generally sharp character to the record which could be artifactual or which could represent increased cerebral excitability but there are no clear epileptiform abnormalities or electrographic seizures Impression: Abnormal due to moderate generalized slowing of the backgrounds where the record can be interpreted, no overt epileptiform abnormalities but the record is marred by near constant artifact. If there is a strong clinical suspicion of seizures a recording with sedation could provide better sensitivity. Pertinent Lab Results: as above Disposition Summary Disposition Principal Diagnosis: New onset Seizure Additional Diagnosis: DM HTN Alzheimers Discharge Disposition: home or self care Discharge Instructions General Discharge Information Code Status: Full Code Patient's Diet: diabetic diet Patient's Activity: as tolerated Follow-Up Instructions/Appts: Please follow up with your PCP in a week Please follow up with Neurologist in a week Medications at Discharge Discharge Medications: Continue taking these medications: Duloxetine Hydrochloride (Cymbalta) 20 MG CAPSULE.DR 20 Milligram ORAL DAILY Glimepiride (Amaryl) 1 MG TABLET 1 Tablet ORAL DAILY Qty = 30 Comments: not taken this admission Aspirin (Aspirin*) 81 MG TAB.CHEW 1 Tablet ORAL DAILY Qty = 30 Comments: Last Taken:05/12/17 Time:1111 Cholecalciferol (Vitamin D3) (Vitamin D) 1,000 UNIT TABLET 1 Tablet ORAL DAILY Qty = 30 Comments: not taken this admission Cyanocobalamin (Vitamin B-12) 1,000 MCG TABLET 1 Tablet ORAL DAILY Qty = 30 Comments: not taken this admission Metformin HCl (Glucophage) 850 MG TABLET 1 Tablet ORAL TWICE DAILY Qty = 30 Comments: not taken this admission Start taking the following new medications: Levetiracetam (Keppra) 500 MG TABLET 1 Tablet ORAL TWICE DAILY Qty = 60 No Refills Instructions: . Comments: Last Taken:05/13/17 Time:1241 Copies To: Aj SHINE,Ramón; Yogi SHINE,Amelia Royal Attending MD Review Statement Documenting Attending: Shirley Fair MD Other Findings: Discharged in stable condition
[2017-05-12 22:32] VITALS: BP 138/78
[2017-05-13 06:53] VITALS: BP 132/72
--- NOTE | 2017-05-13 07:28 | PN- Housestaff ---
Martin SHINE,Dang 05/13/17 0727: Subjective Follow-up For: New onset of seizure Subjective: Seen and examined Patient is refusing to take medications. Overnight had high Heart rate, EKG did show sinus tachy. Remians stable without any pain/further episodes of confusion. underwent EEG this AM Review of Systems Constitutional: Reports: see HPI. Comments: ROS negative except the above Objective Last 24 Hrs of Vital Signs/I&O Vital Signs Date Time Temp Pulse Resp B/P B/P Pulse O2 O2 Flow FiO2 Mean Ox Delivery Rate 05/13 0653 98.6 65 18 132/72 100 Room Air 05/12 2232 98.4 69 16 138/78 99 Room Air 05/12 1400 98.2 70 20 120/60 95 Intake & Output 05/13 0800 05/13 0000 05/12 1600 Intake Total 0 240 600 Output Total Balance 0 240 600 Intake, Oral 0 240 600 Physical Exam General Appearance: Alert, Cooperative, No Acute Distress Skin: No Rashes HEENT: Atraumatic, PERRLA Neck: Supple Cardiovascular: Normal S1, Normal S2 Lungs: Clear to Auscultation, Normal Air Movement Abdomen: Normal Bowel Sounds, Soft, No Tenderness Extremities: No Clubbing, No Cyanosis, No Edema Current Medications: Current Medications Sig/Rimma Start time Last Medication Dose Route Stop Time Status Admin Aspirin 81 MG DAILY 05/12 1000 AC 05/12 PO 1111 Atorvastatin Calcium 40 MG 1700 05/11 1300 AC 05/12 PO 1850 Insulin Aspart 0 TIDAC 05/12 1700 AC SC Levetiracetam 500 MG BID 05/12 1219 AC 05/13 PO 1248 Melatonin 5 MG AT BEDTIME 05/12 2200 AC 05/12 PO 1951 Last 24 Hrs of Lab/Christopher Results Last 24 Hrs of Labs/Mics: Laboratory Tests 05/13/17 0635: Magnesium 1.6 Assessment/Plan Assessment: Patient is a haician creole (errol) speaking female with HTN, DM on oral hypoglycemics, TIA, RA presented with seizure like symptoms. Admitted to telemetry floor. Intial work up for possible stroke was negative. Problem list New onset seizure DM Dementia HTN TIA RA New onset seizure Patient presented with sudden onset of aphasia and lip smacking movements associated with shaking. It is more consistent with seizure like activity than stroke. intial work up for stroke including CT head, ECHO and carotid ultrasound was normal. * Underwent EEG today which demonstrated Abnormal due to moderate generalized slowing * started on keppra 500mg BID due to high clinical suspicion * discharged to home today as she had 24hr care at home Advanced dementia she did have very advanced dementia with little improvement with medications. So discontinued exelon and remained off medicaitions. Diabetes Continued on ISS with accuchecks. At home on metfromin and glimiperide. TIA (long back) continue ASA 81mg daily DVT prophylaxis ALPS Code status full code Problem List: 1. Altered mental status 2. Seizure 3. Dementia 4. Diabetes mellitus 5. TIA Pain Ratin Pain Location: n/a Pain Goal: Pain 4 or less Pain Plan: tylenol prn Tomorrow's Labs & Rationales: none Shirley Fair MD 05/13/17 1144: Attending MD Review Statement Attending Statement Attending MD Statement: examined this patient, discuss w/resident/PA/DIAMOND GRINDER, agreed w/resident/PA/DIAMOND GRINDER, reviewed EMR data (avail), discussed with nursing, discussed with case mgmt, amended to note Attending Assessment/Plan: Patient seen and examined. Resting comfortably not in any distress. She is smiling and aware of her surroundings. This morning she did make some verbal responses when greeted. She continues to move all extremities spontaneously. She has had no events on telemetry monitoring.She remains afebrile hemodynamically stable. Laboratory data shows mild hyperkalemia and mildly elevated PTH level suggesting mild hyperparathyroidism. EEG was suboptimal and showed no evidence of epileptiform activity Recommendations: -Patient is medically stable to be discharged home today. -Symptoms appear to have been caused by seizure and not stroke. -She is being discharged on Keppra. She has refused a couple of doses here however daughter states she will be able to give further medications at home. -Patient was previously on Bystolic for blood pressure control but notices this has been discontinued in the past. -Patient is on metformin and glimepiride for glucose control and this will be continued on discharge. 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 -Patient will be referred to an endocrinology service for further evaluation of her hyperparathyroidism.
--- NOTE | 2017-05-13 09:43 | Patient Discharge Instructions ---
Discharge Instructions General Discharge Information You were seen/treated for: New onset seizures Special Instructions: Please follow up with your PCP in a week Please follow up with your Neurologist in a week Diet Recommended Diet: Diabetic Activity Full Activity/No Limits: Yes Activity Self Limited: Yes Acute Coronary Syndrome Inclusion Criteria At DC or during hospital stay patient has or had the following: ACS DIAGNOSIS No Discharge Core Measures Meds if any: Prescribed or Continued at Discharge Meds if any: NOT Prescribed or Continued at Discharge Congestive Heart Failure Inclusion Criteria At DC or during hospital stay patient has or had the following: CHF DIAGNOSIS No Discharge Core Measures Meds if any: Prescribed or Continued at Discharge Meds if any: NOT Prescribed or Continued at Discharge Cerebrovascular accident Inclusion Criteria At DC or during hospital stay patient has or had the following: CVA/TIA Diagnosis No Discharge Core Measures Meds if any: Prescribed or Continued at Discharge Meds if any: NOT Prescribed or Continued at Discharge Venous thromboembolism Inclusion Criteria VTE Diagnosis No VTE Type NONE VTE Confirmed by (Test) NONE Discharge Core Measures - Per Current guidelines, there needs to be overlap - treatment for the first 5 days of Warfarin therapy. - If discharged on Warfarin prior to 5 days of - overlap therapy, the patient will need to be - assessed for post discharge needs including - *Post discharge parental anticoagulation - *Warfarin and/or parental anticoagulation education - *Follow up date to check INR post discharge At least 5 days overlap therapy as Inpatient No Meds if any: Prescribed or Continued at Discharge Note: Overlap Therapy is Warfarin and Anticoagulant Meds if any: NOT Prescribed or Continued at Discharge
--- NOTE | 2017-05-13 11:08 | ELECTROENCEPHALOGRAM REPORT ---
Electroencephalogram Report Electroencephalogram Results Date of service: 05/13/17 Attending MD: Shirley Fair MD Top Ironer: Attila Genao EEG Number: [id number] Test Utilizes: 10-20 system, reduced 13 lead 10 channel digital recording Pertinent Hx/Physical/Neuro Findings/Clin Diagnosis: 81 year old patient with being evaluated for a "spe rule out seizure. Inpatient Medications: Current Medications Sig/Rimma Start time Last Medication Dose Route Stop Time Status Admin Aspirin 81 MG DAILY 05/12 1000 AC 05/12 PO 1111 Atorvastatin Calcium 40 MG 1700 05/11 1300 AC 05/12 PO 1850 Clopidogrel Bisulfate 75 MG DAILY 05/11 1745 DC 05/12 PO 1112 Dextrose/Sodium 1,000 ML Q13H 05/11 1415 DC 05/12 Chloride IV 0605 Insulin Aspart 0 TIDAC 05/12 1700 AC SC Insulin Human Regular 0 Q6 05/11 1800 DC 05/12 SC 0605 Levetiracetam 500 MG BID 05/12 1219 AC 05/12 PO 1349 Melatonin 5 MG AT BEDTIME 05/12 2200 AC 05/12 PO 1951 Interpretation: A limited 13-lead 10 channel recording was performed on this confused and uncooperative patient. The study is limited by movement and muscle artifact recurring throughout the recording Activation procedures such as photic and hyperventilation could not be performed. During moments of relative calm the background is composed of somewhat irregular moderate amplitude 6-7 Hz rhythms with rare 9 Hz activity in the posterior region which is bilaterally symmetric. most of the record consists of higher amplitude slower theta and 2-3 Hz delta frequency activity with muscle and movement artifact. There is a generally sharp character to the record which could be artifactual or which could represent increased cerebral excitability but there are no clear epileptiform abnormalities or electrographic seizures Impression: Abnormal due to moderate generalized slowing of the backgrounds where the record can be interpreted, no overt epileptiform abnormalities but the record is marred by near constant artifact. If there is a strong clinical suspicion of seizures a recording with sedation could provide better sensitivity.
[2017-05-13] MEDS ORDERED: KEPPRA500 M1 PO ×2 (11:51→12:06)
--- NOTE | 2017-05-13 12:08 | PN- Neurology ---
Subjective Subjective: No further seizures. Awake, alert, looks well Objective Vital Signs and I&Os Vital Signs Date Time Temp Pulse Resp B/P B/P Pulse O2 O2 Flow FiO2 Mean Ox Delivery Rate 05/13 0553 98.6 65 18 132/72 100 Room Air 05/12 2232 98.4 69 16 138/78 99 Room Air 05/12 1400 98.2 70 20 120/60 95 Intake & Output 05/13 1600 05/13 0800 05/13 0000 05/12 1600 05/12 0800 05/12 0000 Intake Total 0 240 600 600 225 Output Total Balance 0 240 600 600 225 Intake, IV 600 225 Intake, Oral 0 240 600 0 Patient 119 lb Weight Physical Exam: No change in abulia Face symmetric No focal motor deficits No abnormal involuntary movements Current Medications: Current Medications Sig/Rimma Start time Last Medication Dose Route Stop Time Status Admin Aspirin 81 MG DAILY 05/12 1000 AC 05/12 PO 1111 Atorvastatin Calcium 40 MG 1700 05/11 1300 AC 05/12 PO 1850 Clopidogrel Bisulfate 75 MG DAILY 05/11 1745 DC 05/12 PO 1112 Insulin Aspart 0 TIDAC 05/12 1700 AC SC Levetiracetam 500 MG BID 05/12 1219 AC 05/12 PO 1349 Melatonin 5 MG AT BEDTIME 05/12 2200 AC 05/12 PO 1951 Results Last 24 Hours of Lab Results: Laboratory Tests 05/13 0635 Chemistry Magnesium (1.6 - 2.3 mg/dL) 1.6 Recent Imaging Studies: EEG done today: Interpretation: A limited 13-lead 10 channel recording was performed on this confused and uncooperative patient. The study is limited by movement and muscle artifact recurring throughout the recording Activation procedures such as photic and hyperventilation could not be performed. During moments of relative calm the background is composed of somewhat irregular moderate amplitude 6-7 Hz rhythms with rare 9 Hz activity in the posterior region which is bilaterally symmetric. most of the record consists of higher amplitude slower theta and 2-3 Hz delta frequency activity with muscle and movement artifact. There is a generally sharp character to the record which could be artifactual or which could represent increased cerebral excitability but there are no clear epileptiform abnormalities or electrographic seizures Impression: Abnormal due to moderate generalized slowing of the backgrounds where the record can be interpreted, no overt epileptiform abnormalities but the record is marred by near constant artifact. If there is a strong clinical suspicion of seizures a recording with sedation could provide better sensitivity. DICTATED BY: Darrick SHINE,Jamari Royal DATE/TIME DICTATED:05/13/171099 OPHTHALMIC SURGICAL ASSISTANT:KATERIN DATE/TIME TRANSCRIBED:05/13/171099 REPORT NUMBER:[id number] Assessment/Plan Assessment: Probable new onset seizure in a 81-year-old woman with a history of dementia with speech and language impairment/abulia Plan: Continue Keppra 500 mg twice a day Monitored for adverse side effects such as sedation or agitation Outpatient follow-up either at [place] or at the [facility] neurology clinic
[2017-05-13] MEDS ORDERED: BYSTOLIC5 M1 PO (12:51)
== END 2017-05-13 15:30 | DRG 53 ==
LOC: ERH 09:36 → 1NO 11:21 → ERHI 11:21 → ENRESERV 13:06 → ENTRNSPT 13:50 → 1NO 13:57 → EDTRNSPTSTS 13:58 → EDTRNSPT 13:58 → 1NO 14:01 → CMPTRNSPT 14:37 → 1NO 05-12 13:22 → ENPENDDIS 05-13 11:58 → 1NO 05-13 15:30
PROVIDERS: Emergency Medicine; Student in an Organized Health Care Education/Training Program
DX: R56.9 Unspecified convulsions (principal); F03.90 Unspecified dementia, unspecified severity, without behavioral disturbance, psychotic disturbance, mood disturbance, and anxiety; R47.01 Aphasia; I69.992 Facial weakness following unspecified cerebrovascular disease; E83.52 Hypercalcemia; E11.8 Type 2 diabetes mellitus with unspecified complications; Z79.84 Long term (current) use of oral hypoglycemic drugs; M06.9 Rheumatoid arthritis, unspecified; Z88.8 Allergy status to other drugs, medicaments and biological substances; Z79.82 Long term (current) use of aspirin
CPT/HCPCS: 1NSP; 36415; 82436; 93005; 93010; 93306; 95816; 97116-GO; 97530-GO; 99291; J1815; J1953; J3490; J7042